=== PATIENT | male | born 1990 | race Caucasian/White ===

== ENCOUNTER 2017-04-04 11:09 | Emergency (ER) | payer OTHER ==
[2017-04-04 11:24] VITALS: TEMP 98.4; O2SAT 95
[2017-04-04] MEDS ORDERED: NS 1,000 ML IV ONE (12:16)
[2017-04-04] MEDS ORDERED: ONDANSETRON 4 MG/2 ML VIAL IVP ONE (12:16)
--- NOTE | 2017-04-04 12:16 | EDPHY ---
General Narrative: CHIEF COMPLAINT: Flank and abdominal pain HISTORY OF PRESENT ILLNESS: Patient complains of 2 days history of right-sided flank and abdominal pain. This was gradual onset. Constant duration. Now radiates into the right side of the abdomen. Worse with movement and position. Some improvement when he lays on his back to the left side. Nausea but no vomiting. No fever or chills. No dysuria. No hematuria. No history of kidney stone but that is what he thinks this is. Has a history of testicular cancer status post left orchidectomy. No trauma or injury. No other associated complaints or modifying factors. REVIEW OF SYSTEMS: Ten systems reviewed and are negative unless otherwise noted in the HPI PCP: None locally. SPECIALISTS: None currently. Previously urologist back in [place] PAST MEDICAL HISTORY: ED PAST SURGICAL HISTORY: Left orchidectomy SOCIAL HISTORY: Smoker. Occasional alcohol use. Occasional marijuana use. Works at [employer] here in [place] FAMILY HISTORY: Noncontributory EXAMINATION General Appearance: Alert, no distress, no position of comfort Head: normocephalic, atraumatic Eyes: Pupils equal and round, no conjunctival pallor or injection ENT, Mouth: Mucous membranes moist. Airway patent Neck: Normal inspection, supple, non-tender Respiratory: Lungs are clear to auscultation.No wheeze, rhonchi or crackles Cardiovascular: Regular rate and rhythm. No murmur. Gastrointestinal: Abdomen is soft and nondistended. There is mild tenderness on the right side of the abdomen. No point tenderness in right lower quadrant. No guarding. There is moderate right CVA tenderness. Negative obturator. Back: Soft tissue tenderness on the right lumbar region. No midline tenderness. No crepitus, step-off or deformity. no bony abnormalities Neurological: A&O, nonfocal, normal gait Skin: Warm and dry, no rash. No petechiae or purpura Extremities: Nontender, no pedal edema Psychiatric: Mood and affect normal DIFFERENTIAL DIAGNOSES: Including but not limited to renal colic, ureteral stone, hydronephrosis, pyelonephritis, colitis, appendicitis MDM: 12:15 p.m. Right flank pain that radiates in the abdomen. Examination history suggest renal colic. He is in no acute distress but does have significant amount of pain. I have ordered pain medication and IV fluid. Plan for Toradol if his creatinine is normal. He will provide a urine sample force. CT scan ordereded. 12:45 p.m. Patient re-evaluated. He is feeling much better on the pain medication. Laboratory studies thus far negative for any acute findings. CT scan pending. 1:00 p.m. Case discussed with radiologist Dr. Gee. CT scan findings as documented. No evidence of stone. Incidental finding regarding the L5 vertebrae. 1:25 p.m. Patient re-evaluated. Still has pain but it is tolerable at this time. It does continue to be reproducible on the right lower back, soft tissue only. I informed him of the negative laboratory studies. I informed him of the CT scan findings. I informed him of the spondylolysis, and he informs me that he is already aware of this. I do not have a source for his pain but I do not feel that he warrants any further evaluation here to the emergency department. I will discharge her home with pain medication and muscle relaxant. I discussed with Dr. Toney and he agrees. We would like the patient to return in 24 hours if no improvement of symptoms. Like him to return sooner for any changes or worsening symptoms. Patient is comfortable this plan and discharged in stable condition. - History Smoking Status: Current every day smoker - Objective Vital Signs: Initial Vital Signs Temperature (C) 98.4 F 04/04/17 11:22 Heart Rate 80 04/04/17 11:22 Respiratory Rate 16 04/04/17 11:22 Blood Pressure 141/90 H 04/04/17 11:22 O2 Sat (%) 95 04/04/17 11:22 O2 Delivery Mode Room Air Allergies/Adverse Reactions: No Known Allergies Allergy (Unverified 04/04/17 11:21) Home Medications: Medication Instructions Recorded Adderall 10 MG (*) 04/04/17 Cyclobenzaprine [Flexeril 10 MG 10 mg PO TID PRN #13 tab 04/04/17 (*)] oxyCODONE HCL/ACETAMINOPHEN 1 each PO Q4-6PRN PRN #13 tablet 04/04/17 [Percocet 5-325 mg Tablet] Laboratory Results: Laboratory Results 04/04/17 11:48 04/04/17 11:48 Medications Given: Discontinued Medications Sodium Chloride (Ns) 1,000 mls @ 0 mls/hr IV EDNOW ONE; Wide Open PRN Reason: Protocol Stop: 04/04/17 12:17 Last Admin: 04/04/17 12:28 Dose: 1,000 mls Ketorolac Tromethamine (Toradol) 30 mg IVP EDNOW ONE Stop: 04/04/17 12:39 Last Admin: 04/04/17 12:53 Dose: 30 mg Morphine Sulfate (Morphine) 6 mg IVP EDNOW ONE Stop: 04/04/17 12:17 Last Admin: 04/04/17 12:29 Dose: 6 mg Ondansetron HCl (Zofran) 4 mg IVP EDNOW ONE Stop: 04/04/17 12:17 Last Admin: 04/04/17 12:29 Dose: 4 mg Departure - Departure Disposition: Home, Routine, Self-Care Clinical Impression: Flank pain, acute Condition: Good Instructions: Musculoskeletal Pain (ED), Flank Pain (ED) Additional Instructions: 1. Medications as prescribed as needed 2. Return to emergency department in 24 hours if no improvement in her symptoms 3. Return sooner for any worsening of her symptoms 4. Follow up with the on-call primary care physician whom we have referred you to Referrals: NONE *PRIMARY CARE P,. [Primary Care Provider] - As per Instructions Sloan Wellington MD [Medical Doctor] - As per Instructions Prescriptions: Cyclobenzaprine [Flexeril 10 MG (*)] 10 mg PO TID PRN #13 tab PRN Reason: Spasms oxyCODONE HCL/ACETAMINOPHEN [Percocet 5-325 mg Tablet] 1 each PO Q4-6PRN PRN # 13 tablet PRN Reason: Pain, Breakthrough
[2017-04-04 12:22] LABS: % IMMATURE GRANULYOCYTES 0.3 % (0.0-1.1); ABSOLUTE IMMATURE GRANULOCYTES 0.01 10^3/uL (0.00-0.10); ADD DIFF? NO; ADD MORPH? NO; ADD SCAN? NO; ATYPICAL LYMPHOCYTE FLAG 0 (0-99); FRAGMENT RBC FLAG 0 (0-99); LEFT SHIFT FLG 0 (0-99); LIPEMIA HEMOLYSIS FLAG 90 (0-99); MEAN CELL HEMOGLOBIN 32.3 pg (27.9-34.1); MEAN CELL HEMOGLOBIN CONCENTR. 36.2 g/dL (32.4-36.7); MEAN CELL VOLUME 89.2 fL (81.5-99.8); MEAN PLATELET VOLUME 10.4 fL (8.7-11.7); PLATELET CLUMPS FLAG 0 (0-99); PLATELET COUNT 185 10^3/uL (150-400); RED BLOOD CELL COUNT 5.27 10^6/uL (4.40-6.38); RED CELL DISTRIBUTION WIDTH 11.7 % (11.5-15.2)
[2017-04-04 12:27] LABS: ALANINE AMINOTRANSFERASE 65 IU/L (21-72); ALBUMIN 4.7 g/dL (3.5-5.0); ALKALINE PHOSPHATASE 82 IU/L (38-126); ANION GAP 13 mEq/L (8-16); ASPARTATE AMINOTRANSFERASE 39 IU/L (17-59); BILIRUBIN,TOTAL 1.4 mg/dL (0.1-1.4); BILIRUBIN-CONJUGATED 0.5 mg/dL (0.0-0.5); BILIRUBIN-UNCONJUGATED 0.9 mg/dL (0.0-1.1); CARBON DIOXIDE 25 mEq/l (22-31); CHLORIDE 102 mEq/L (97-110); CREATININE 0.9 mg/dL (0.7-1.3); GLOMERULAR FILTRATION RATE > 60; GLUCOSE 155 mg/dL (70-100); SODIUM 140 mEq/L (134-144); TOTAL PROTEIN 7.4 g/dL (6.3-8.2)
[2017-04-04 12:27] LABS: COLOR YELLOW; LEUKOCYTE ESTERASE,URINE NEGATIVE (NEGATIVE); NITRITE,URINE NEGATIVE (NEGATIVE)
[2017-04-04 12:30] LABS: MUCUS 1+ /lpf (NONE-1+)
[2017-04-04] MEDS ORDERED: KETOROLAC 30 MG/1 ML SDV IVP ONE (12:38)
[2017-04-04 13:41] VITALS: BP 139/73; PULSE 67; RESP 18
== END 2017-04-04 13:41 | disposition home or self-care (01) ==
DX: R10.9 Unspecified abdominal pain (principal); E86.9 Volume depletion, unspecified
CPT/HCPCS: 96374; J1885; J2405

== ENCOUNTER → 2018-12-07 | Outpatient (CLI) | payer OTHER | LOC: FIMAGING 09:49 ==